=== PATIENT | female | born 1955 | race Caucasian/White ===

== ENCOUNTER 2016-06-22 21:47 | Emergency (ER) | payer OTHER ==
[~2016-06-22 21:47] MED LIST: NORCO1 TA1 PO; PRIN10 PO
[2016-11-14] MEDS ORDERED: LEXAPRO10 PO (11:00)
[2016-11-14] MEDS ORDERED: ATV1 PO (11:01)
[2016-11-14] MEDS ORDERED: ARIMIDEX1 PO (11:01)
[2016-11-14] MEDS ORDERED: COREG12 PO (11:02)
== END 2016-06-23 03:45 | disposition home or self-care (01) ==
LOC: ER 21:47
DX: S93.402A Sprain of unspecified ligament of left ankle, initial encounter (principal); S92.302A Fracture of unspecified metatarsal bone(s), left foot, initial encounter for closed fracture; M79.672 Pain in left foot; I10 Essential (primary) hypertension; Z86.19 Personal history of other infectious and parasitic diseases; Z85.3 Personal history of malignant neoplasm of breast; M79.1 Myalgia; R20.2 Paresthesia of skin; W19.XXXA Unspecified fall, initial encounter; X50.1XXA Overexertion from prolonged static or awkward postures, initial encounter
CPT/HCPCS: 73610-LT; 73630-LT; 99283; A9270-GY